=== PATIENT | male | born 1950 | race Caucasian/White ===

== ENCOUNTER → 2020-04-28 14:13 | Outpatient (BNVA) | payer MEDICARE, SELFPAY | PROVIDERS: Family Provider Family Medicine; Visit Provider Family Medicine | DX: Z20.828 Contact with and (suspected) exposure to other viral communicable diseases (principal) | CPT/HCPCS: 87635 ==

== ENCOUNTER 2021-07-25 14:10 | Outpatient (CLI) | payer MEDICARE, BC, SELFPAY ==
--- NOTE | 2021-07-25 14:45 | US_ITS ---
WS: [id number] ULTRASOUND ABDOMEN CLINICAL INFORMATION: ACUTE RLQ ABDOMINAL PAIN COMPARISON: Ultrasound January 04, 2011 FINDINGS: Liver Size: Normal. Craniocaudal length: 12.5 cm. Echogenicity: Normal. Surface nodularity: None. Mass (size and location): None. Bile ducts Intrahepatic ducts: Normal. Common bile duct diameter: 0.4 cm. Gallbladder Removed Pancreas Not visualized Spleen Splenomegaly: None. Craniocaudal length: 10.2 cm. Right kidney: Simple cyst RIGHT kidney measuring 4.4 x 4.6 cm. increased compared to 2011 Hydronephrosis: None. Size: 11.2 cm x 5.2 cm x 4.8 cm Left kidney: Incidental simple cyst upper pole LEFT kidney measuring 1.6 x 2.1 x 1.9 CM. Complex cyst ic lesion with calcifications LEFT kidney in the superior pole measuring 3.0 x 3.3 x 3.2 CM appears n ew since 2010 Hydronephrosis: None. Size: 12.5 cm x 4.6 cm x 4.9 cm. Abdominal aorta and IVC Visualized portions are normal. Ascites: None. US/US abdomen complete* [id number] IMPRESSION: 1. Normal liver. 2. Prior cholecystectomy. Normal common bile duct. 3. Simple cyst RIGHT kidney measuring 4.4 x 4.6 cm. 4. Complex cystic lesion with calcifications LEFT kidney in the superior pole measuring 3.0 x 3.3 x 3.2 CM. This can be followed up with contrast-enhanced CT abdomen pelvis. 5. Additional incidental simple cyst upper pole LEFT kidney measuring 1.6 x 2. 1 x 1.9 CM.
--- NOTE | 2021-07-25 14:45 | US_ITS ---
WS: [id number] Ultrasound abdomen, limited. History: RIGHT lower quadrant pain. Comparison: None. Ultrasound is directed to the RIGHT lower quadrant in the area of pain. Normal peristalsing loops of bowel. No inflammatory or hypervascular mass or free fluid. US/US appendix [id number] IMPRESSION: Appendix is not identified but there is no evidence for appendicitis or inflamm atory mass.
[2021-07-25 14:48] LABS: Basophils # 0.1 10^3/uL (0.0-0.1); Basophils % 1.4 %; Eosinophils # 0.3 10^3/uL (0.0-0.8); Hematocrit 43.5 % (42.0-52.0); Hemoglobin 14.4 g/dL (11.7-16.6); Lymphocytes # 1.1 10^3/uL (0.8-4.8); Lymphocytes % 10.4 %; Mean Corpuscular HGB Conc 33.1 g/dL (30.0-36.0); Mean Corpuscular Hemoglobin 28.6 pg (28.0-34.0); Mean Corpuscular Volume 86.3 fl (80-94); Mean Platelet Volume 9.9 fL (7.4-10.4); Monocytes # 0.8 10^3/uL (0.2-0.9); Monocytes % 7.4 %; Neutrophils # 8.01 10^3/uL (1.8-7.7); Neutrophils % 77.4 %; Nucleated Red Blood Cells % 0 %; Platelet Count 260 10^3/cmm (130-400); Red Blood Count 5.04 10^6/uL (4.1-5.3); Red Cell Distribution Width 12.5 % (12.1-15.1); White Blood Count 10.3 10^3/uL (4.0-10.0)
[2021-07-25 15:18] LABS: Alanine Aminotransferase 17 U/L (0-41); Albumin Level 4.4 g/dL (3.5-5.2); Alkaline Phosphatase 105 IU/L (40-130); Anion Gap 15.9 (5-19); Aspartate Amino Transferase 37 U/L (0-40); Blood Urea Nitrogen 13 mg/dL (8-23); Calcium 8.9 mg/dL (8.5-10.5); Carbon Dioxide 24 mmol/L (22-29); Chloride 100 mmol/L (98-107); Globulin 3.5 g/dL (1.3-4.6); Glomerular Filtration Rate 73.9 mL/min (90-130); Glucose 122 mg/dL (65-115); Lipase 20 U/L (13-60); Osmolality Calculated 281 mOsm/kg (285-295); Potassium 4.9 mmol/L (3.5-5.1); Sodium 135 mmol/L (136-145); Total Bilirubin 0.5 mg/dL (0.15-1.2); Total Protein 7.9 g/dL (6.6-8.7)
== END 2021-07-25 14:11 | disposition home or self-care (01) ==
PROVIDERS: PCP Family Medicine; Visit Provider Family Medicine
DX: R10.31 Right lower quadrant pain (principal); Z90.49 Acquired absence of other specified parts of digestive tract; N28.1 Cyst of kidney, acquired
CPT/HCPCS: 76700; 76705; 80053; 83690; 85025